=== PATIENT | male | born 1965 | race African-American/Black ===

== ENCOUNTER 2017-11-03 22:13 | Inpatient (IN) | payer MEDICAID ==
[~2017-11-03] VITALS: Ht 172.7 cm; Wt 68.9 kg
[2017-11-03 23:18] LABS: BASOPHILS % (AUTO) 0.6 % (0.0-2.0); EOSINOPHILS % (AUTO) 3.1 % (1.0-6.0); HEMATOCRIT 39.8 % (41-53); HEMOGLOBIN 13.7 g/dL (13.5-17.5); LYMPHOCYTES # (AUTO) 0.8 K/uL (1.0-4.8); LYMPHOCYTES % (AUTO) 18.5 % (22.0-44.0); MEAN CORPUSCULAR HEMOGLOBIN 30.8 pg (26.0-34.0); MEAN CORPUSCULAR HGB CONC 34.3 G/dL (31.0-37.0); MEAN CORPUSCULAR VOLUME 90 fL (80-100); MONOCYTES # (AUTO) 0.4 K/uL (0.1-1.0); MONOCYTES % (AUTO) 10.9 % (2.0-9.0); NEUTROPHILS # (AUTO) 2.8 K/uL (1.8-7.7); NEUTROPHILS % (AUTO) 66.9 % (40.0-70.0); PLATELET COUNT (AUTO) 174 K/uL (150-450); RED BLOOD CELL COUNT(AUTO) 4.44 MIL/uL (4.50-5.90); RED CELL DISTRIBUTION WIDTH 13.7 % (11.5-14.5)
[2017-11-03 23:34] LABS: ANION GAP 4 mmol/L (8-16); CALCIUM, TOTAL 8.2 mg/dL (8.8-10.5); CARBON DIOXIDE 30 mmol/L (22-29); CHLORIDE 105 mmol/L (98-107); GLOMERULAR FILTR. RATE CALC > 60 mL/min (>60); GLUCOSE,RANDOM 90 mg/dL (70-110); POTASSIUM 3.8 mmol/L (3.5-5.1); SODIUM SERUM 139 mmol/L (136-145); UREA NITROGEN, BLOOD 12 mg/dL (7-18)
[2017-11-03 23:40] LABS: ALANINE AMINOTRANSFERASE 33 U/L (12-78); ALBUMIN 3.5 g/dL (3.4-5.0); ALKALINE PHOSPHATASE 59 U/L (46-116); ASPARTATE AMINOTRANSFERASE 29 U/L (15-37); BILIRUBIN,TOTAL 0.3 mg/dL (0.1-1.0); TOTAL PROTEIN, SERUM 7.6 g/dL (6.4-8.2)
[2017-11-03 23:47] LABS: AMPHET/METH SCREEN,URINE NEGATIVE (NEGATIVE); BARBITURATE SCREEN, URINE NEGATIVE (NEGATIVE); BENZODIAZEPINES SCREEN,URINE NEGATIVE (NEGATIVE); CANNABINOID SCREEN,URINE NEGATIVE (NEGATIVE); COCAINE SCREEN,URINE NEGATIVE (NEGATIVE); METHADONE SCREEN, URINE NEGATIVE (NEGATIVE); OPIATE SCREEN,URINE NEGATIVE (NEGATIVE)
[2017-11-03 23:51] LABS: PHENCYCLIDINE SCREEN,URINE NEGATIVE (NEGATIVE)
[2017-11-04] MEDS ORDERED: ZOLPIDEM TARTRATE 10 MG TABLET PO PRN (02:00)
[2017-11-04] MEDS ORDERED: LORazepam 2 MG TABLET PO PRN (02:00)
[2017-11-04] MEDS ORDERED: HALOPERIDOL 5 MG TABLET PO PRN (02:00)
[2017-11-04 04:49] VITALS: BP 124/83
[2017-11-04] MEDS ORDERED: PNEUMOCOCCAL VACCINE POLYVALENT 0.5 ML VIAL [PPSV23] IM ONE (06:00)
[2017-11-04 08:02] VITALS: BP 120/74
[2017-11-04] MEDS ORDERED: IBUPROFEN 600 MG TABLET PO PRN (08:15)
[2017-11-04] MEDS ORDERED: ONDANSETRON HCL 4 MG TABLET PO PRN (08:15)
[2017-11-04] MEDS ORDERED: PETROLATUM,WHITE 71 GM JELLY TP PRN (08:15)
[2017-11-04] MEDS ORDERED: BENZOCAINE/MENTHOL LOZENGE MM PRN (08:15)
[2017-11-04] MEDS ORDERED: MAG HYDROX/AL HYDROX/SIMETH ES 30 ML SUSPENSION UDCUP PO PRN (08:15)
[2017-11-04] MEDS ORDERED: ALBUTEROL SULFATE HFA 90 MCG/PUFF 8 GM INHALER IH PRN (08:15)
[2017-11-04] MEDS ORDERED: LOPERAMIDE HCL 2 MG CAPSULE PO PRN (08:15)
[2017-11-04] MEDS ORDERED: CloNIDine HCL 0.1 MG TABLET PO PRN (08:15)
[2017-11-04] MEDS ORDERED: BACITRACIN 28.4 GM OINTMENT TP PRN (08:15)
[2017-11-04] MEDS ORDERED: ACETAMINOPHEN 325 MG TABLET PO PRN (08:15)
[2017-11-04] MEDS ORDERED: MAGNESIUM HYDROXIDE SUSPENSION 30 ML UDCUP PO PRN (08:15)
[2017-11-04 16:15] VITALS: BP 108/62
[2017-11-05 06:15] VITALS: BP 121/62
[2017-11-05 08:04] VITALS: BP 118/75
[2017-11-05] MEDS: ARIPiprazole 10 MG TABLET PO SCH (08:04)
[2017-11-05 16:08] VITALS: BP 122/68
[2017-11-06 06:16] VITALS: BP 118/65
[2017-11-06 08:40] VITALS: BP 110/69
[2017-11-06] MEDS: ARIPiprazole 10 MG TABLET PO SCH (08:57)
[2017-11-06 16:00] VITALS: BP 117/80
[2017-11-07 05:40] VITALS: BP 121/86
[2017-11-07 08:43] LABS: CHOL/HDL RATIO 3.3 (4.2-7.3); THYROID STIMULATING HORMONE 2.41 uIU/mL (0.36-3.74)
[2017-11-07] MEDS: ARIPiprazole 10 MG TABLET PO SCH (08:47)
[2017-11-07 09:06] VITALS: BP 129/75
[2017-11-07 16:00] VITALS: BP 122/70
[2017-11-07] MEDS ORDERED: IBUPROFEN 600 MG TABLET PO PRN (22:00)
[2017-11-08 06:01] VITALS: BP 121/92
[2017-11-08 08:45] VITALS: BP 125/80
[2017-11-08] MEDS: ARIPiprazole 15 MG TABLET PO SCH (09:19)
[2017-11-08] MEDS: CHOLECALCIFEROL (VIT D3) 1,000 UNITS TABLET PO SCH (09:19)
[2017-11-08 16:44] VITALS: BP 128/88
[2017-11-09 01:47] VITALS: BP 120/68
[2017-11-09 08:53] VITALS: BP 112/91
[2017-11-09] MEDS: CHOLECALCIFEROL (VIT D3) 1,000 UNITS TABLET PO SCH ×2 (09:00→09:44)
[2017-11-09] MEDS: ARIPiprazole 15 MG TABLET PO SCH ×2 (09:00→09:44)
[2017-11-09] MEDS ORDERED: ARIP15TA2 PO (12:59)
== END 2017-11-09 14:40 | disposition home or self-care (01) | DRG 750 ==
LOC: EMS 22:15 → B2S 11-04 02:00
PROVIDERS: ADMIT Psychiatry & Neurology Psychiatry; ATTEND Psychiatry & Neurology Psychiatry
DX: F25.0 Schizoaffective disorder, bipolar type (principal); Z91.19 Patient's noncompliance with other medical treatment and regimen; I10 Essential (primary) hypertension; F41.9 Anxiety disorder, unspecified; G47.00 Insomnia, unspecified; E55.9 Vitamin D deficiency, unspecified; K21.9 Gastro-esophageal reflux disease without esophagitis; M19.90 Unspecified osteoarthritis, unspecified site; Z79.899 Other long term (current) drug therapy; Z91.5 Personal history of self-harm
CPT/HCPCS: 82306; 84443; 99285; G0480

== ENCOUNTER 2017-11-11 13:51 | Inpatient (IN) | payer MEDICAID ==
[~2017-11-11] VITALS: Ht 172.7 cm; Wt 68.9 kg
[~2017-11-11 13:51] MED LIST: ARIP15TA2 PO
[2017-11-11 15:35] LABS: BASOPHILS % (AUTO) 0.4 % (0.0-2.0); EOSINOPHILS % (AUTO) 1.1 % (1.0-6.0); HEMATOCRIT 42.4 % (41-53); HEMOGLOBIN 14.7 g/dL (13.5-17.5); LYMPHOCYTES % (AUTO) 13.1 % (22.0-44.0); MEAN CORPUSCULAR HEMOGLOBIN 30.7 pg (26.0-34.0); MEAN CORPUSCULAR HGB CONC 34.7 G/dL (31.0-37.0); MEAN CORPUSCULAR VOLUME 89 fL (80-100); MONOCYTES # (AUTO) 0.4 K/uL (0.1-1.0); MONOCYTES % (AUTO) 5.9 % (2.0-9.0); NEUTROPHILS # (AUTO) 5.8 K/uL (1.8-7.7); NEUTROPHILS % (AUTO) 79.5 % (40.0-70.0); PLATELET COUNT (AUTO) 219 K/uL (150-450); RED BLOOD CELL COUNT(AUTO) 4.79 MIL/uL (4.50-5.90); RED CELL DISTRIBUTION WIDTH 14.1 % (11.5-14.5)
[2017-11-11 15:45] LABS: ANION GAP 8 mmol/L (8-16); CALCIUM, TOTAL 8.7 mg/dL (8.8-10.5); CARBON DIOXIDE 26 mmol/L (22-29); CHLORIDE 102 mmol/L (98-107); GLOMERULAR FILTR. RATE CALC > 60 mL/min (>60); GLUCOSE,RANDOM 96 mg/dL (70-110); POTASSIUM 3.8 mmol/L (3.5-5.1); SODIUM SERUM 136 mmol/L (136-145); UREA NITROGEN, BLOOD 16 mg/dL (7-18)
[2017-11-11 15:52] LABS: ALANINE AMINOTRANSFERASE 50 U/L (12-78); ALBUMIN 3.9 g/dL (3.4-5.0); ALKALINE PHOSPHATASE 46 U/L (46-116); ASPARTATE AMINOTRANSFERASE 32 U/L (15-37); BILIRUBIN,TOTAL 0.4 mg/dL (0.1-1.0); TOTAL PROTEIN, SERUM 8.1 g/dL (6.4-8.2)
[2017-11-11] MEDS ORDERED: ACETAMINOPHEN 325 MG TABLET PO PRN (20:45)
[2017-11-11] MEDS ORDERED: MAG HYDROX/AL HYDROX/SIMETH ES 30 ML SUSPENSION UDCUP PO PRN (20:45)
[2017-11-11] MEDS ORDERED: ZOLPIDEM TARTRATE 10 MG TABLET PO PRN (20:45)
[2017-11-11] MEDS ORDERED: HALOPERIDOL 5 MG TABLET PO PRN (20:45)
[2017-11-11] MEDS ORDERED: MAGNESIUM HYDROXIDE SUSPENSION 30 ML UDCUP PO PRN (20:45)
[2017-11-11] MEDS ORDERED: LORazepam 2 MG TABLET PO PRN (20:45)
[2017-11-11] MEDS ORDERED: INSULIN LISPRO 100 UNITS/ML SQ PRN (22:45)
[2017-11-11] MEDS ORDERED: GLUCAGON,HUMAN RECOMBINANT 1 MG VIAL IM PRN (22:45)
[2017-11-12 00:23] VITALS: BP 125/83
[2017-11-12] MEDS ORDERED: PNEUMOCOCCAL VACCINE POLYVALENT 0.5 ML VIAL [PPSV23] IM ONE (01:45)
[2017-11-12] MEDS ORDERED: DOCUSATE SODIUM 100 MG CAPSULE PO PRN (08:00)
[2017-11-12] MEDS ORDERED: PETROLATUM,WHITE 71 GM JELLY TP PRN (08:00)
[2017-11-12] MEDS ORDERED: MAGNESIUM HYDROXIDE SUSPENSION 30 ML UDCUP PO PRN (08:00)
[2017-11-12] MEDS ORDERED: MAG HYDROX/AL HYDROX/SIMETH ES 30 ML SUSPENSION UDCUP PO PRN (08:00)
[2017-11-12] MEDS ORDERED: ALBUTEROL SULFATE HFA 90 MCG/PUFF 8 GM INHALER IH PRN (08:00)
[2017-11-12] MEDS ORDERED: IBUPROFEN 400 MG TABLET PO PRN (08:00)
[2017-11-12] MEDS ORDERED: ACETAMINOPHEN 325 MG TABLET PO PRN (08:00)
[2017-11-12] MEDS ORDERED: ONDANSETRON HCL 4 MG TABLET PO PRN (08:00)
[2017-11-12 08:19] VITALS: BP 143/72
[2017-11-12] MEDS: CHOLECALCIFEROL (VIT D3) 400 UNITS TABLET PO SCH ×3 (09:00→17:00)
[2017-11-12] MEDS: NICOTINE 14 MG/24 HOUR PATCH TD SCH (09:56)
[2017-11-12 16:05] VITALS: BP 117/70
[2017-11-13 05:53] VITALS: BP 126/75
[2017-11-13 08:11] VITALS: BP 125/76
[2017-11-13 08:17] LABS: CHOL/HDL RATIO 3.9 (4.2-7.3); THYROID STIMULATING HORMONE 1.81 uIU/mL (0.36-3.74)
[2017-11-13] MEDS: NICOTINE 14 MG/24 HOUR PATCH TD SCH (09:00)
[2017-11-13] MEDS: CHOLECALCIFEROL (VIT D3) 400 UNITS TABLET PO SCH ×3 (09:00→16:17)
[2017-11-13] MEDS: ARIPiprazole 15 MG TABLET PO SCH (09:00)
[2017-11-13 16:22] VITALS: BP 133/91
[2017-11-14 01:05] VITALS: BP 135/86
[2017-11-14 08:05] VITALS: BP 124/86
[2017-11-14] MEDS: ARIPiprazole 15 MG TABLET PO SCH (08:57)
[2017-11-14] MEDS: CHOLECALCIFEROL (VIT D3) 400 UNITS TABLET PO SCH ×3 (08:57→16:54)
[2017-11-14] MEDS: NICOTINE 14 MG/24 HOUR PATCH TD SCH (08:58)
[2017-11-14 16:00] VITALS: BP 122/89
[2017-11-15 07:09] VITALS: BP 117/84
[2017-11-15 08:04] VITALS: BP 123/85
[2017-11-15] MEDS: NICOTINE 14 MG/24 HOUR PATCH TD SCH (09:00)
[2017-11-15] MEDS: CHOLECALCIFEROL (VIT D3) 400 UNITS TABLET PO SCH ×3 (09:22→16:44)
[2017-11-15] MEDS: ARIPiprazole 15 MG TABLET PO SCH (09:22)
[2017-11-15 16:00] VITALS: BP 120/72
[2017-11-16 05:43] VITALS: BP 128/97
[2017-11-16 08:09] VITALS: BP 131/94
[2017-11-16] MEDS: NICOTINE 14 MG/24 HOUR PATCH TD SCH (09:00)
[2017-11-16] MEDS: ARIPiprazole 15 MG TABLET PO SCH (09:00)
[2017-11-16] MEDS: CHOLECALCIFEROL (VIT D3) 400 UNITS TABLET PO SCH ×3 (09:11→17:07)
[2017-11-16 17:06] VITALS: BP 119/74
[2017-11-17 06:21] VITALS: BP 122/84
== END 2017-11-17 07:15 | disposition home or self-care (01) | DRG 750 ==
LOC: EMS 13:53 → B3A 20:41
PROVIDERS: ADMIT Psychiatry & Neurology Psychiatry; ATTEND Psychiatry & Neurology Psychiatry
PROC: 3E0234Z Introduction of Serum, Toxoid and Vaccine into Muscle, Percutaneous Approach (ICD-10-PCS; principal; 2017-11-12)
DX: F25.0 Schizoaffective disorder, bipolar type (principal); R45.851 Suicidal ideations; Z91.19 Patient's noncompliance with other medical treatment and regimen; I10 Essential (primary) hypertension; E55.9 Vitamin D deficiency, unspecified; F32.9 Major depressive disorder, single episode, unspecified; F19.10 Other psychoactive substance abuse, uncomplicated; G47.00 Insomnia, unspecified; M19.90 Unspecified osteoarthritis, unspecified site; Z91.5 Personal history of self-harm; Z23 Encounter for immunization; Z79.899 Other long term (current) drug therapy; Z72.89 Other problems related to lifestyle
CPT/HCPCS: 84443; 87081; 90471; 99285; G0480